=== PATIENT | male | born 2000 | race Caucasian/White ===

== ENCOUNTER 2023-04-10 20:12 | Emergency (ER) | payer BC ==
[2023-04-10] MEDS ORDERED: Ibuprofen 800 MG Tab PO ONE (21:25)
[2023-04-10] MEDS ORDERED: Acetaminophen 325 MG Tab PO ONE (21:25)
== END 2023-04-10 21:42 | disposition home or self-care (01) ==
LOC: JD.ED 20:12
DX: R07.89 Other chest pain (principal)
CPT/HCPCS: 71045; 93005; 99285; A9270; 93010; 99283